=== PATIENT | male | born 1985 | race Two or more races ===

== ENCOUNTER 2024-11-25 21:42 | Emergency (ER) | payer SELFPAY ==
[~2024-11-25] VITALS: Ht 167.6 cm; Wt 63.6 kg
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
[2024-11-25 22:57] VITALS: BP 136/82; PULSE 99; RESP 18; TEMP 98.6; O2SAT 99
== END 2024-11-25 22:59 | disposition home or self-care (01) ==
LOC: ER 21:44
DX: Z02.89 Encounter for other administrative examinations (principal)
CPT/HCPCS: 99283